=== PATIENT | female | born 1985 | race Caucasian/White ===

== ENCOUNTER 2019-08-03 15:05 | Outpatient (CLI) | payer OTHER ==
[~2019-08-03] VITALS: Ht 180.3 cm; Wt 128.0 kg
[2019-08-03 16:00] LABS: BASOPHILS # (AUTO) 0.02 x10^3/uL (0-0.1); BASOPHILS % (AUTO) 0 % (0-1); EOSINOPHILS # (AUTO) 0.06 x10^3/uL (0-0.4); EOSINOPHILS % (AUTO) 0 % (1-7); LYMPHOCYTES # (AUTO) 2.77 x10^3/uL (1-3.4); LYMPHOCYTES % (AUTO) 20 % (22-44); MD NO; MEAN CORPUSCULAR HEMOGLOBIN 29.6 pg (27.0-34.8); MEAN CORPUSCULAR HGB CONC 33.5 g/dL (32.4-35.8); MEAN CORPUSCULAR VOLUME 88.6 fL (80-100); MEAN PLATELET VOLUME 7.8 fL (7.4-10.4); MONOCYTES # (AUTO) 0.64 x10^3/uL (0.2-0.8); MONOCYTES % (AUTO) 5 % (2-9); NEUTROPHILS # (AUTO) 10.16 x10^3/uL (1.8-6.8); NEUTROPHILS % (AUTO) 74 % (42-75); PLATELET COUNT 378 x10^3/uL (130-400); RED BLOOD COUNT 4.22 x10^6/uL (3.82-5.3); RED CELL DISTRIBUTION WIDTH 13.1 % (9.6-15.2)
[2019-08-03 16:06] LABS: MICROSCOPIC INDICATED
[2019-08-03 16:09] LABS: ALBUMIN 2.8 g/dL (3.4-5.0); ANION GAP 8 mmol/L (5-15); CALCIUM 8.5 mg/dL (8.5-10.1); CHLORIDE 107 mmol/L (98-107)
[2019-08-03 16:11] LABS: CREATININE,URINE RANDOM 80.3 mg/dL
[2019-08-03 16:12] LABS: ALANINE AMINOTRANSFERASE 28 U/L (12-78); ALKALINE PHOSPHATASE 121 U/L (45-117); BILIRUBIN,TOTAL 0.2 mg/dL (0.2-1.0); CREATININE 0.56 mg/dL (0.55-1.02); TOTAL PROTEIN 7.1 g/dL (6.4-8.2)
[2019-08-03 16:14] LABS: BILIRUBIN, DIRECT < 0.1 mg/dL (0.1-0.2)
[2019-08-03] MEDS ORDERED: PREN1TAB10 PO (16:29)
== END 2019-08-03 16:45 | disposition home or self-care (01) ==
LOC: LDOP 15:05
PROVIDERS: ATTEND Obstetrics & Gynecology
DX: O26.893 Other specified pregnancy related conditions, third trimester (principal); R03.0 Elevated blood-pressure reading, without diagnosis of hypertension; Z3A.38 38 weeks gestation of pregnancy
CPT/HCPCS: 36415; 59025; 80053; 81001; 82248; 82570; 84156; 84550; 85025; 99201; G0463

== ENCOUNTER 2019-08-06 14:46 | Inpatient (IN) | payer OTHER ==
[~2019-08-06] VITALS: Ht 180.3 cm; Wt 128.0 kg
[~2019-08-06 14:46] MED LIST: PREN1TAB10 PO
[2019-08-06] MEDS ORDERED: OXYTOCIN 30U/ 0.9% NaCL 500ML 500 ML IV ONE (14:50)
[2019-08-06] MEDS ORDERED: AMPICILLIN 2 GM in SODIUM CHLORIDE 0.9% 100 ML IVPB STA (14:50)
[2019-08-06] MEDS: D5%-LACTATED RINGERS 1,000 ML IV SCH ×2 (14:50→22:50)
[2019-08-06] MEDS ORDERED: CALCIUM CARBONATE 500 MG TAB.CHEW PO PRN (15:00)
[2019-08-06] MEDS ORDERED: FENTANYL PF 100 MCG/2ML IV PRN (15:00)
[2019-08-06] MEDS ORDERED: TERBUTALINE 1 MG/ML, 1ML IVPush PRN (15:00)
[2019-08-06] MEDS ORDERED: FENTANYL PF 100 MCG/2ML IVPush PRN (15:00)
[2019-08-06] MEDS ORDERED: ONDANSETRON 2MG/ML, 2ML IVPush PRN (15:00)
[2019-08-06] MEDS ORDERED: TERBUTALINE 1 MG/ML, 1ML SQ PRN (15:00)
[2019-08-06] MEDS ORDERED: MISOPROSTOL 25 MCG TABLET ONE ×2 (15:27→20:10)
[2019-08-06 15:32] VITALS: BP 137/64
[2019-08-06 15:33] LABS: BASOPHILS # (AUTO) 0.05 x10^3/uL (0-0.1); BASOPHILS % (AUTO) 0 % (0-1); EOSINOPHILS # (AUTO) 0.04 x10^3/uL (0-0.4); EOSINOPHILS % (AUTO) 0 % (1-7); LYMPHOCYTES # (AUTO) 2.47 x10^3/uL (1-3.4); LYMPHOCYTES % (AUTO) 18 % (22-44); MD NO; MEAN CORPUSCULAR HEMOGLOBIN 30.1 pg (27.0-34.8); MEAN CORPUSCULAR HGB CONC 34.1 g/dL (32.4-35.8); MEAN CORPUSCULAR VOLUME 88.3 fL (80-100); MEAN PLATELET VOLUME 8.1 fL (7.4-10.4); MONOCYTES # (AUTO) 0.69 x10^3/uL (0.2-0.8); MONOCYTES % (AUTO) 5 % (2-9); NEUTROPHILS # (AUTO) 10.16 x10^3/uL (1.8-6.8); NEUTROPHILS % (AUTO) 76 % (42-75); PLATELET COUNT 366 x10^3/uL (130-400); RED BLOOD COUNT 4.22 x10^6/uL (3.82-5.3)
[2019-08-06 15:37] LABS: ALBUMIN 2.9 g/dL (3.4-5.0); ANION GAP 9 mmol/L (5-15); CHLORIDE 109 mmol/L (98-107)
[2019-08-06 15:40] LABS: ALANINE AMINOTRANSFERASE 25 U/L (12-78); ALKALINE PHOSPHATASE 123 U/L (45-117); BILIRUBIN,TOTAL 0.2 mg/dL (0.2-1.0); CREATININE 0.59 mg/dL (0.55-1.02); TOTAL PROTEIN 7.4 g/dL (6.4-8.2)
[2019-08-06 15:41] LABS: BILIRUBIN, DIRECT < 0.1 mg/dL (0.1-0.2)
[2019-08-06] MEDS: LACTATED RINGERS 1,000 ML IV SCH (15:42)
[2019-08-06] MEDS: MISOPROSTOL 25 MCG TABLET VG PRN (15:42)
[2019-08-06 16:20] LABS: CREATININE,URINE RANDOM 90.5 mg/dL
[2019-08-06] MEDS ORDERED: AMPICILLIN 1 GM in SODIUM CHLORIDE 0.9% 50 ML IVPB SCH (18:00)
[2019-08-06 18:21] LABS: MICROSCOPIC INDICATED
[2019-08-06] MEDS: AMPICILLIN 1 GM in SODIUM CHLORIDE 0.9% 100 ML IVPB SCH (20:13)
[2019-08-06] MEDS ORDERED: CALCIUM CARBONATE 500 MG TAB.CHEW ONE (20:19)
[2019-08-07] MEDS: MISOPROSTOL 25 MCG TABLET VG PRN ×2 (00:03→12:00)
[2019-08-07] MEDS ORDERED: FENTANYL PF 100 MCG/2ML ONE ×2 (00:04→05:38)
[2019-08-07] MEDS: AMPICILLIN 1 GM in SODIUM CHLORIDE 0.9% 100 ML IVPB SCH ×3 (00:11→12:30)
[2019-08-07] MEDS: LACTATED RINGERS 1,000 ML IV SCH ×2 (00:27→08:33)
[2019-08-07] MEDS ORDERED: MISOPROSTOL 25 MCG TABLET ONE ×3 (06:28→11:44)
[2019-08-07] MEDS ORDERED: LACTATED RINGERS 1,000 ML IV SCH (06:59)
[2019-08-07] MEDS ORDERED: FENTANYL/BUPIV./NS/PF 250 ML EPIDCONT SCH (06:59)
[2019-08-07] MEDS ORDERED: LACTATED RINGERS 1,000 ML IVBOLUS PRN (07:00)
[2019-08-07] MEDS ORDERED: EPHEDRINE 50 MG/ML, 1ML IVPush PRN (07:00)
[2019-08-07] MEDS ORDERED: NEWBORN KIT ONE (07:01)
[2019-08-07] MEDS ORDERED: FENTANYL PF 500 MCG, BUPIVACAINE/PF 0.5%, 30ML 62.5 ML in SODIUM CHLORIDE 0.9% 177.5 ML EPIDCONT SCH (07:30)
[2019-08-07] MEDS ORDERED: LIDOCAINE 1%, 20ML ONE (10:11)
[2019-08-07] MEDS ORDERED: MISOPROSTOL 200 MCG TABLET ONE (10:12)
[2019-08-07] MEDS ORDERED: OXYTOCIN 30U/ 0.9% NaCL 500ML 500 ML ONE (10:12)
== END 2019-08-07 15:53 | disposition home or self-care (01) | DRG 833 ==
LOC: LDIP 14:46
PROVIDERS: ADMIT Obstetrics & Gynecology; ATTEND Obstetrics & Gynecology
DX: O99.820 Streptococcus B carrier state complicating pregnancy (principal); O14.93 Unspecified pre-eclampsia, third trimester; Z3A.38 38 weeks gestation of pregnancy; Z80.3 Family history of malignant neoplasm of breast; Z87.891 Personal history of nicotine dependence
CPT/HCPCS: 36415; 80053; 81001; 82248; 82570; 84156; 84550; 85025; 86592; 86850; 86900; 96360; 96361; G0378; J0290; J3010; J7120

== ENCOUNTER 2019-08-14 10:56 | Outpatient (CLI) | payer OTHER ==
[~2019-08-14] VITALS: Ht 180.3 cm; Wt 126.8 kg
[2019-08-14 10:59] VITALS: BP 124/70
[2019-08-14 12:36] LABS: BASOPHILS # (AUTO) 0.03 x10^3/uL (0-0.1); BASOPHILS % (AUTO) 0 % (0-1); EOSINOPHILS # (AUTO) 0.02 x10^3/uL (0-0.4); EOSINOPHILS % (AUTO) 0 % (1-7); LYMPHOCYTES # (AUTO) 2.78 x10^3/uL (1-3.4); LYMPHOCYTES % (AUTO) 17 % (22-44); MD NO; MEAN CORPUSCULAR HEMOGLOBIN 30.1 pg (27.0-34.8); MEAN CORPUSCULAR HGB CONC 33.8 g/dL (32.4-35.8); MEAN CORPUSCULAR VOLUME 89.1 fL (80-100); MEAN PLATELET VOLUME 7.8 fL (7.4-10.4); MONOCYTES # (AUTO) 0.62 x10^3/uL (0.2-0.8); MONOCYTES % (AUTO) 4 % (2-9); NEUTROPHILS % (AUTO) 78 % (42-75); PLATELET COUNT 386 x10^3/uL (130-400); RED BLOOD COUNT 4.63 x10^6/uL (3.82-5.3); RED CELL DISTRIBUTION WIDTH 12.9 % (9.6-15.2)
[2019-08-14] MEDS ORDERED: LACTATED RINGERS 1,000 ML IV SCH (13:00)
== END 2019-08-14 14:30 | disposition home or self-care (01) ==
LOC: LDOP 10:56
PROVIDERS: ATTEND Obstetrics & Gynecology
DX: O36.8131 Decreased fetal movements, third trimester, fetus 1 (principal); O36.8331 Maternal care for abnormalities of the fetal heart rate or rhythm, third trimester, fetus 1; Z3A.39 39 weeks gestation of pregnancy
CPT/HCPCS: 36415; 59025; 76819; 85025; 86850; 86900; 96360; 96361; 99211; J7120; G0463

== ENCOUNTER 2019-08-17 07:44 | Inpatient (IN) | payer OTHER ==
[~2019-08-17] VITALS: Ht 180.3 cm; Wt 126.8 kg
[2019-08-17] MEDS ORDERED: D5%-LACTATED RINGERS 1,000 ML IV SCH (07:56)
[2019-08-17] MEDS ORDERED: OXYTOCIN 30U/ 0.9% NaCL 500ML 500 ML IV PRN (07:56)
[2019-08-17] MEDS ORDERED: OXYTOCIN 30U/ 0.9% NaCL 500ML 500 ML IV ONE (07:56)
[2019-08-17 08:00] VITALS: BP 125/66
[2019-08-17] MEDS ORDERED: METOCLOPRAMIDE 5 MG/ML, 2ML IVPush PRN (08:00)
[2019-08-17] MEDS ORDERED: PENICILLIN GK 5,000,000 UNITS in DEXTROSE 5% 100 ML IVPB ONE (08:00)
[2019-08-17] MEDS ORDERED: TERBUTALINE 1 MG/ML, 1ML SQ PRN (08:00)
[2019-08-17] MEDS ORDERED: ONDANSETRON 2MG/ML, 2ML IVPush PRN (08:00)
[2019-08-17] MEDS ORDERED: TERBUTALINE 1 MG/ML, 1ML IVPush PRN (08:00)
[2019-08-17] MEDS ORDERED: FENTANYL PF 100 MCG/2ML IV PRN (08:00)
[2019-08-17] MEDS ORDERED: SODIUM CITRATE/CITRIC ACID 30 ML UDC PO PRN (08:00)
[2019-08-17] MEDS ORDERED: SODIUM CHLORIDE FLUSH 10ML SYR IVF PRN (08:00)
[2019-08-17] MEDS: LACTATED RINGERS 1,000 ML IV SCH (08:19)
[2019-08-17 08:24] LABS: BASOPHILS # (AUTO) 0.03 x10^3/uL (0-0.1); BASOPHILS % (AUTO) 0 % (0-1); EOSINOPHILS # (AUTO) 0.04 x10^3/uL (0-0.4); EOSINOPHILS % (AUTO) 0 % (1-7); LYMPHOCYTES % (AUTO) 14 % (22-44); MD NO; MEAN CORPUSCULAR HEMOGLOBIN 29.4 pg (27.0-34.8); MEAN CORPUSCULAR HGB CONC 33.2 g/dL (32.4-35.8); MEAN CORPUSCULAR VOLUME 88.6 fL (80-100); MEAN PLATELET VOLUME 7.6 fL (7.4-10.4); MONOCYTES # (AUTO) 0.46 x10^3/uL (0.2-0.8); MONOCYTES % (AUTO) 4 % (2-9); NEUTROPHILS # (AUTO) 10.51 x10^3/uL (1.8-6.8); NEUTROPHILS % (AUTO) 82 % (42-75); PLATELET COUNT 352 x10^3/uL (130-400); RED BLOOD COUNT 4.36 x10^6/uL (3.82-5.3); RED CELL DISTRIBUTION WIDTH 12.9 % (9.6-15.2)
[2019-08-17] MEDS ORDERED: MISOPROSTOL 25 MCG TABLET ONE ×2 (08:25→14:03)
[2019-08-17] MEDS ORDERED: MISOPROSTOL 200 MCG TABLET ONE (08:25)
[2019-08-17] MEDS ORDERED: NEWBORN KIT ONE (08:25)
[2019-08-17] MEDS ORDERED: LIDOCAINE 1%, 20ML ONE (08:25)
[2019-08-17] MEDS ORDERED: OXYTOCIN 30U/ 0.9% NaCL 500ML 500 ML ONE (08:25)
[2019-08-17 08:47] LABS: ALANINE AMINOTRANSFERASE 27 U/L (12-78); ALBUMIN 2.7 g/dL (3.4-5.0); ANION GAP 8 mmol/L (5-15); CALCIUM 8.6 mg/dL (8.5-10.1); CHLORIDE 110 mmol/L (98-107); CREATININE 0.66 mg/dL (0.55-1.02)
[2019-08-17 08:49] LABS: ALKALINE PHOSPHATASE 132 U/L (45-117); BILIRUBIN,TOTAL 0.2 mg/dL (0.2-1.0); TOTAL PROTEIN 7.1 g/dL (6.4-8.2)
[2019-08-17] MEDS: MISOPROSTOL 25 MCG TABLET VG PRN ×2 (10:00→14:07)
[2019-08-17] MEDS ORDERED: LACTATED RINGERS 1,000 ML IV SCH (10:41)
[2019-08-17] MEDS ORDERED: FENTANYL/BUPIV./NS/PF 250 ML EPIDCONT SCH (10:46)
[2019-08-17] MEDS ORDERED: FENTANYL PF 500 MCG, BUPIVACAINE/PF 0.5%, 30ML 62.5 ML in SODIUM CHLORIDE 0.9% 177.5 ML EPIDCONT SCH (11:00)
[2019-08-17] MEDS ORDERED: LACTATED RINGERS 1,000 ML IVBOLUS PRN (11:00)
[2019-08-17] MEDS ORDERED: FENTANYL/BUPIV./NS/PF 250 ML EPIDCONT ONE (11:00)
[2019-08-17] MEDS ORDERED: EPHEDRINE 50 MG/ML, 1ML IVPush PRN (11:00)
[2019-08-17] MEDS: PENICILLIN GK 2,500,000 UNITS in DEXTROSE 5% 100 ML IVPB SCH ×3 (13:00→21:19)
[2019-08-17] MEDS ORDERED: FENTANYL PF 100 MCG/2ML ONE ×2 (18:45→20:12)
[2019-08-17] MEDS: FENTANYL PF 100 MCG/2ML IVPush PRN ×2 (18:47→20:14)
[2019-08-17 19:06] VITALS: BP 135/81
[2019-08-17] MEDS ORDERED: BUPIVACAINE 0.25% ONE (20:43)
[2019-08-18] MEDS: PENICILLIN GK 2,500,000 UNITS in DEXTROSE 5% 100 ML IVPB SCH ×4 (00:51→13:29)
[2019-08-18] MEDS: LACTATED RINGERS 1,000 ML IV SCH ×2 (04:40→12:21)
[2019-08-18 06:18] LABS: MEAN CORPUSCULAR HEMOGLOBIN 29.9 pg (27.0-34.8); MEAN CORPUSCULAR HGB CONC 33.6 g/dL (32.4-35.8); MEAN CORPUSCULAR VOLUME 89.1 fL (80-100); MEAN PLATELET VOLUME 7.7 fL (7.4-10.4); PLATELET COUNT 329 x10^3/uL (130-400); RED BLOOD COUNT 4.21 x10^6/uL (3.82-5.3); RED CELL DISTRIBUTION WIDTH 12.9 % (9.6-15.2)
[2019-08-18 06:32] LABS: CHLORIDE 107 mmol/L (98-107)
[2019-08-18 06:41] LABS: ALANINE AMINOTRANSFERASE 15 U/L (12-78); ALBUMIN 2.6 g/dL (3.4-5.0); ALKALINE PHOSPHATASE 134 U/L (45-117); ANION GAP 7 mmol/L (5-15); BILIRUBIN,TOTAL 0.5 mg/dL (0.2-1.0); CALCIUM 8.4 mg/dL (8.5-10.1); CREATININE 0.64 mg/dL (0.55-1.02); TOTAL PROTEIN 6.7 g/dL (6.4-8.2)
[2019-08-18 06:53] LABS: BASOPHILS # (AUTO) 0.08 x10^3/uL (0-0.1); BASOPHILS % (AUTO) 1 % (0-1); EOSINOPHILS # (AUTO) 0.01 x10^3/uL (0-0.4); EOSINOPHILS % (AUTO) 0 % (1-7); LYMPHOCYTES # (AUTO) 1.83 x10^3/uL (1-3.4); LYMPHOCYTES % (AUTO) 11 % (22-44); MD SCAN; MONOCYTES # (AUTO) 0.68 x10^3/uL (0.2-0.8); MONOCYTES % (AUTO) 4 % (2-9); NEUTROPHILS % (AUTO) 85 % (42-75)
[2019-08-18] MEDS ORDERED: ONDANSETRON 2MG/ML, 2ML ONE (08:35)
[2019-08-18] MEDS ORDERED: SIMETHICONE 80 MG CHEW TAB PO PRN (16:00)
[2019-08-18] MEDS ORDERED: OXYcodone/APAP 5/325MG TABLET PO PRN (16:00)
[2019-08-18] MEDS ORDERED: ONDANSETRON 2MG/ML, 2ML IV PRN (16:00)
[2019-08-18] MEDS ORDERED: MISOPROSTOL 200 MCG TABLET PR PRN (16:00)
[2019-08-18] MEDS ORDERED: ACETAMINOPHEN 325 MG TABLET PO PRN (16:00)
[2019-08-18] MEDS ORDERED: OXYTOCIN 30U/ 0.9% NaCL 500ML 500 ML ONE (16:34)
[2019-08-18] MEDS: OXYTOCIN 30U/ 0.9% NaCL 500ML 500 ML IV SCH (16:36)
[2019-08-18 18:00] VITALS: BP 125/78
[2019-08-18] MEDS: IBUPROFEN 600 MG TABLET PO PRN (19:08)
[2019-08-18] MEDS: DOCUSATE 100 MG CAPSULE PO PRN (19:08)
[2019-08-18 20:30] VITALS: BP 114/74
[2019-08-18 23:27] VITALS: BP 94/62
[2019-08-18 23:59] LABS: BASOPHILS # (AUTO) 0.05 x10^3/uL (0-0.1); BASOPHILS % (AUTO) 0 % (0-1); EOSINOPHILS # (AUTO) 0.07 x10^3/uL (0-0.4); EOSINOPHILS % (AUTO) 0 % (1-7); LYMPHOCYTES # (AUTO) 2.86 x10^3/uL (1-3.4); LYMPHOCYTES % (AUTO) 17 % (22-44); MD NO; MEAN CORPUSCULAR VOLUME 88.5 fL (80-100); MEAN PLATELET VOLUME 8.3 fL (7.4-10.4); MONOCYTES # (AUTO) 1.03 x10^3/uL (0.2-0.8); MONOCYTES % (AUTO) 6 % (2-9); NEUTROPHILS # (AUTO) 12.92 x10^3/uL (1.8-6.8); NEUTROPHILS % (AUTO) 76 % (42-75); PLATELET COUNT 322 x10^3/uL (130-400); RED BLOOD COUNT 3.71 x10^6/uL (3.82-5.3); RED CELL DISTRIBUTION WIDTH 13.1 % (9.6-15.2)
[2019-08-19] MEDS: IBUPROFEN 600 MG TABLET PO PRN ×3 (00:57→15:44)
[2019-08-19] MEDS: OXYTOCIN 30U/ 0.9% NaCL 500ML 500 ML IV SCH (01:54)
[2019-08-19 04:30] VITALS: BP 107/70
[2019-08-19 07:30] VITALS: BP 117/75
[2019-08-19] MEDS: DOCUSATE 100 MG CAPSULE PO PRN ×2 (07:49→22:43)
[2019-08-19] MEDS: PRENATAL VIT/IRON/FA 1 EACH TABLET PO SCH (07:49)
[2019-08-19] MEDS ORDERED: IBUP-1222 PO (09:40)
[2019-08-19 12:30] VITALS: BP 110/73
[2019-08-19 19:55] VITALS: BP 106/59
[2019-08-20 08:06] VITALS: BP 115/74
[2019-08-20] MEDS: PRENATAL VIT/IRON/FA 1 EACH TABLET PO SCH (08:35)
[2019-08-20] MEDS: DOCUSATE 100 MG CAPSULE PO PRN (08:35)
[2019-08-20] MEDS ORDERED: DOCU-131 PO (09:18)
[2019-08-20] MEDS ORDERED: ACET650S21 PO (09:19)
== END 2019-08-20 12:06 | disposition home or self-care (01) | DRG 807 ==
LOC: LDIP 07:44 → UNDOADMIN 07:44 → EDIP 07:44 → 2NW 08-18 18:07
PROVIDERS: ADMIT Obstetrics & Gynecology; ATTEND Obstetrics & Gynecology
PROC: 10E0XZZ Delivery of Products of Conception, External Approach (ICD-10-PCS; principal; 2019-08-18)
PROC: 0HQ9XZZ Repair Perineum Skin, External Approach (ICD-10-PCS; 2019-08-18)
PROC: 3E0P7VZ Introduction of Hormone into Female Reproductive, Via Natural or Artificial Opening (ICD-10-PCS; 2019-08-18)
PROC: 0U7C7ZZ Dilation of Cervix, Via Natural or Artificial Opening (ICD-10-PCS; 2019-08-18)
PROC: 10H07YZ Insertion of Other Device into Products of Conception, Via Natural or Artificial Opening (ICD-10-PCS; 2019-08-18)
PROC: 3E0R3BZ Introduction of Anesthetic Agent into Spinal Canal, Percutaneous Approach (ICD-10-PCS; 2019-08-18)
PROC: 00HU33Z Insertion of Infusion Device into Spinal Canal, Percutaneous Approach (ICD-10-PCS; 2019-08-18)
DX: O99.824 Streptococcus B carrier state complicating childbirth (principal); Z37.0 Single live birth; O99.214 Obesity complicating childbirth; O70.0 First degree perineal laceration during delivery; O69.81X0 Labor and delivery complicated by cord around neck, without compression, not applicable or unspecified; E66.9 Obesity, unspecified; Z3A.40 40 weeks gestation of pregnancy
CPT/HCPCS: 36415; 80053; 84550; 85025; 86850; 86900; G0378; J2405; J2540; J3010; J2590; J7120